=== PATIENT | female | born 1985 | race Caucasian/White ===

== ENCOUNTER 2017-01-21 00:45 | Emergency (ER) | payer BC ==
[~2017-01-21] VITALS: Ht 162.6 cm; Wt 86.4 kg
[2017-01-21] MEDS ORDERED: PROGRAF 1MG1 MG PO (00:53)
[2017-01-21] MEDS ORDERED: MYFORTIC180 MG PO (00:54)
[2017-01-21] MEDS ORDERED: CITALOPRAM40 MG PO (00:54)
[2017-01-21] MEDS ORDERED: ST. JOSEPH ASPI81 MG PO (00:55)
[2017-01-21] MEDS ORDERED: PREDNISONE 5MG5 MG PO (00:55)
[2017-01-21] MEDS ORDERED: CIPRO250 M1 PO (03:38)
[2017-01-21 03:49] VITALS: BP 116/71
== END 2017-01-21 03:49 | disposition home or self-care (01) ==
LOC: ED 00:45
DX: N39.0 Urinary tract infection, site not specified (principal); R53.81 Other malaise; R50.9 Fever, unspecified; Z94.83 Pancreas transplant status; Z94.0 Kidney transplant status